=== PATIENT | male | born 1990 | race Caucasian/White ===

== ENCOUNTER 2018-03-13 14:16 | Inpatient (IN) | payer OTHER ==
[~2018-03-13] VITALS: Ht 177.8 cm; Wt 63.5 kg
--- NOTE | 2018-03-13 17:45 | NUR ---
Pre-assessment Note Pre-Assessment done at intake office, client is A/O x4, he presents with flat affect, anxious mood, restless, flushed facial skin, and tremors felt. Client is wearing clean clothes, he appears malnourished, temporal waste, and brittle nails. Client avoids eye contact, he answers questions in a low, monotone voice, he has difficulty concentrating, questions need to be repeated, client is shifting in chair constantly. T 98.7, RR 18, HR 104, BP 138/79, spO2 @ 98% on RA, No Pain. He is fully ambulatory. He reports NKDA. Client verbalized understanding of disposal of unidentifiable pills and controlled medications, unit protocol regarding vital signs Q4H, blood drawn, and urine drug test.
[2018-03-13] MEDS ORDERED: SERT50TA PO (18:01)
[2018-03-13] MEDS ORDERED: LEVE500T9 PO (18:01)
[2018-03-13] MEDS ORDERED: ONDA4TAB11 PO (18:01)
[2018-03-13] MEDS ORDERED: POTA-10 PO (18:01)
[2018-03-13] MEDS ORDERED: TRAZ-182 PO (18:01)
[2018-03-13] MEDS ORDERED: MAGN400T26 PO (18:01)
--- NOTE | 2018-03-13 18:08 | NUR ---
Admission Note Client stated, "I am scare to stop drinking on my own." Client is a 27 year old male, arrived on the unit at 1808. Client has a steady gait. Admitted for medically withdrawal of Alcohol. Client appears suspicious and worried. Client appears to be withdrawing from alcohol. CIWA 6 for anxiety and agitation. Client is oriented to unit, educated about protocols and how to work TV and call light in his room. Weigh: 150 pounds. Height: 5'10" Client reports withdrawal symptoms as follow: "Sweats, headaches, confusion, nausea, vomiting, restless, irritability, tremors, and restless legs." Client substance use: Alcohol (Fireball Whiskey), first time use at age 18 in social gatherings with friends, slowly he started increasing until he became fully dependent of use, now he consumes 1000mL of whiskey daily for the past 18 months, last used 03/13/18 @ 1300, 30mL of Rum mixed with coca-cola. Bilateral lung clear on auscultation, abdomen soft, non-tender, no edema noted. 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 He is taking Keppra 500mg PO BID. Client reports past medical history: alcohol intoxication (03/07/18). Past psychiatric Hx: Anxiety (06/19), depression (06/19) client is taking Zoloft does not remember dose. Client denies any history of involuntary psychiatric hospitalization, no history of suicidal/homicidal ideation. Client has NKDA, regular diet, full code ordered. Client declines PNA /FLU vaccine, stating, "I don't think I will get that." He gives verbal consent for HIV. He reports no history of treatment, his longest period of sobriety is for a month in 2016 does not recall the exact date. Client stated, "I am going into a residential treatment and try to stay sober, otherwise, I don't think I will make it." Dr. Engel notified of client's admission. Client has not provided urine for urine drug screen. All safety measures instituted. [place] precaution. Call light within reach. Will continue to monitor.
[2018-03-13] MEDS ORDERED: RANI150T43 PO (18:50)
[2018-03-13] MEDS ORDERED: IBUP-1627 PO (18:52)
--- NOTE | 2018-03-13 19:30 | NUR ---
END OF SHIFT Endorse client to incoming nurse, client is in room, a/o x 4, client continues to presents with depressed mood, poor appetite, anxiety, and agitation. Client denies SI/HI. Last CIWA 6 @ 1800. Consumed 50% of dinner. Adequate PO fluid intake 1500mL, stool x 2. Call light within reach.
--- NOTE | 2018-03-13 19:35 | NUR ---
Start of Shift Patient Received. Per endorsement, Patient is a 27 year old male admitted for signs and symptoms of ETOH Withdrawal. Patient is set to start of modified Valium taper tomorrow 03/14/17. PRN medications available for increased signs and symptoms of withdrawal. Patient continues on Keppra 500mg BID for history of seizures. MRSA swap collected due to patient receiving medical care due to increased withdrawals. No PRN medications administered due to patient unable to provide admission urine drug screen. Last noted CIWA 6. Upon rounds patient is noted in bed, awake, alert and verbally responsive. Patient is noted to be disheveled, unkempt, odorous, avoids eye contact with flat, depressed affect. Patient is able to verbalize increased anxiety, agitation, tremulous, increased chills, sweats, and episode of loose bowels. Patient is also noted to request to join peers for smoke break. Explained to patient that medications would be administered once urine drugs screen was obtained. Patient was able to provide urine. Will administer medications when patient arrives back on unit. Patient verbalized understanding. All needs attended to promptly. Will continue plan of care as ordered.
[2018-03-13 20:02] LABS: *AMPHETAMINE, URINE NEGATIVE (NEGATIVE); *BARBITURATE, URINE NEGATIVE (NEGATIVE); *CANNABINOID, URINE NEGATIVE (NEGATIVE); *COCCAINE, URINE NEGATIVE (NEGATIVE); *OPIATE, URINE NEGATIVE (NEGATIVE); *PHENCYCLIDINE SCREEN,URINE NEGATIVE (NEGATIVE)
[2018-03-13] MEDS ORDERED: ACETAMINOPHEN 325 MG TABLET PO PRN (20:15)
[2018-03-13] MEDS ORDERED: LORAZEPAM 2 MG/1 ML VIAL IM PRN (20:15)
[2018-03-13] MEDS ORDERED: MIRALAX 17 GM POWD.PACK PO PRN (20:15)
[2018-03-13] MEDS ORDERED: MAG HYDROX/AL HYDROX/SIMETH 30 ML LIQUID UDC PO PRN (20:15)
[2018-03-13] MEDS ORDERED: THIAMINE HCL 200 MG/2 ML VIAL IM ONE (20:15)
[2018-03-13] MEDS ORDERED: MAGNESIUM HYDROXIDE 30 ML LIQUID UDC PO PRN (20:15)
[2018-03-13] MEDS ORDERED: ONDANSETRON 4 MG/2 ML VIAL IM PRN (20:15)
[2018-03-13] MEDS ORDERED: IBUPROFEN 600 MG TABLET PO PRN (20:15)
[2018-03-13] MEDS ORDERED: LOPERAMIDE HCL 2 MG CAPSULE PO PRN ×2 (20:15)
[2018-03-13] MEDS ORDERED: diphenhydrAMINE 50 MG CAPSULE PO PRN (20:15)
[2018-03-13] MEDS ORDERED: DIAZEPAM 5 MG TABLET PO PRN (20:15)
[2018-03-13] MEDS ORDERED: DIAZEPAM 10 MG TABLET PO PRN ×2 (20:15)
[2018-03-13] MEDS ORDERED: ONDANSETRON ODT 4 MG TAB.RAPDIS SL PRN (20:15)
[2018-03-13 20:25] VITALS: BP 130/75
[2018-03-13] MEDS: LEVETIRACETAM 500 MG TABLET PO SCH (21:06)
[2018-03-13] MEDS: FOLIC ACID 1 MG TABLET PO SCH (21:08)
[2018-03-13] MEDS: MULTIVITAMINS,THERAPEUTIC TABLET PO SCH (21:08)
[2018-03-13] MEDS: THIAMINE HCL 100 MG TABLET PO SCH (21:08)
--- NOTE | 2018-03-13 21:10 | NUR ---
CIWA Assessment/PRN Medication Administration Patient continues to be monitored for increased signs and symptoms of ETOH Withdrawal. Patient is noted to be disheveled, unkempt, odorous, and avoids eye contact with flat, depressed affect. Patient verbalizes increased anxiety, agitation, restlessness, tremulous, increased chills, sweats, and episode of loose bowels. Patient also requesting for sleep medication and states "I usually take Trazodone for sleep" Explained to patient that MD would be made aware. Patient verbalized understanding. PRN Valium 20mg administered for CIWA of 17 as well as PRN Imodium 4mg for episodes of loose bowel. All needs attended to promptly. Will continue to monitor.
[2018-03-13 21:13] LABS: EOSINOPHILS # (AUTO) 0.1 K/uL (0.0-0.7); EOSINOPHILS % (AUTO) 1.3 % (0.0-7.0); HEMATOCRIT 37.1 % (36.7-47.1); HEMOGLOBIN 13.4 g/dL (12.5-16.3); LYMPHOCYTES # (AUTO) 1.2 K/uL (20.0-40.0); LYMPHOCYTES % (AUTO) 31.7 % (20.5-51.5); MEAN CORPUSCULAR HEMOGLOBIN 33.7 uug (23.8-33.4); MEAN CORPUSCULAR HGB CONC 36 g/dL (32.5-36.3); MEAN CORPUSCULAR VOLUME 93.6 fL (73.0-96.2); MONOCYTES # (AUTO) 0.6 K/uL (2.0-10.0); MONOCYTES % (AUTO) 15.6 % (0.0-11.0); NEUTROPHILS # (AUTO) 1.9 K/uL (1.8-8.9); NEUTROPHILS % (AUTO) 50.4 % (38.5-71.5); PLATELET COUNT (AUTO) 227 K/uL (152-348); RED BLOOD CELL COUNT(AUTO) 3.97 MIL/uL (4.06-5.63); WHITE BLOOD COUNT (AUTO) 3.8 K/uL (3.6-10.2)
--- NOTE | 2018-03-13 22:15 | NUR ---
PRN Medication Administration patient is noted in bed with eyes closed but is noted to be easily awakened upon entering room. Breathing even and non labored. Patient is able to verbalize that medications have been effective in minimizing signs and symptoms of withdrawals. PRN Valium 20mg and PRN Imodium noted to be effective. All needs attended to promptly. Will continue to monitor. Addendum: 03/14/18 at 0225 by MATTHEW BRYANT LVN PRN Medication Reassessment
[2018-03-13 22:20] LABS: BILIRUBIN,TOTAL 0.5 mg/dL (0.2-1.0); CREATININE 0.9 mg/dL (0.6-1.3); MAGNESIUM 1.4 mg/dL (1.8-2.4); POTASSIUM 3.1 mmol/L (3.5-5.1); TOTAL PROTEIN, SERUM 7.3 g/dL (6.4-8.2)
[2018-03-13 22:43] LABS: THYROID STIMULATING HORMONE 0.881 mIU/mL (0.358-3.740)
[2018-03-13] MEDS ORDERED: MAGNESIUM OXIDE 400 MG TABLET PO ONE (22:45)
[2018-03-13] MEDS ORDERED: POTASSIUM CHLORIDE 20 MEQ TAB.PRT.SR PO ONE (22:45)
[2018-03-13] MEDS ORDERED: TRAZODONE 50 MG TABLET PO ONE (22:45)
--- NOTE | 2018-03-13 22:50 | NUR ---
MD Communication/Labs Patients labs drawn and noted with potassium 3.1 and Magnesium of 1.4. Orders of one time dose of KDUR 40meq and Mag ox of 800mg. Patient noted to refuse Trazodone 50mg and states "I think I will be ok without the Trazodone." KDUR and Mag Ox administered as per order. Will continue to monitor.
[2018-03-14 00:28] VITALS: BP 121/60
--- NOTE | 2018-03-14 00:30 | NUR ---
CIWA Assessment Patient is noted in bed with eyes closed. Breathing even and non labored. Patient is easily awakened to verbal stimuli. Patient compliant with vitals. Vitals rendered. He is noted to easily fall back to sleep with no complications noted. CIWA not able to be completed as per order. Will continue to monitor.
[2018-03-14 00:39] LABS: BASOPHILS % (MANUAL) 1 % (0-2); EOSINOPHILS % (MANUAL) 1 % (0-8); LYMPHOCYTES % (MANUAL) 33 % (20-40); MONOCYTES % (MANUAL) 16 % (2-10); NEUTROPHILS % (MANUAL) 49 % (42-75)
[2018-03-14 04:18] VITALS: BP 108/65
--- NOTE | 2018-03-14 04:25 | NUR ---
CIWA Assessment Patient is noted in bed with eyes closed. Breathing even and non labored. Patient is easily awakened to verbal stimuli. He is compliant with vitals. Patient is noted to easily fall back to sleep with no complications noted. CIWA not able to be completed as per order. Will continue to monitor.
--- NOTE | 2018-03-14 07:22 | NUR ---
End of Shift Patient is noted in bed with eyes closed. Breathing even and non labored. No signs of restlessness or facial grimacing noted. Patient is set to start a modified Valium taper today 03/14/17. Patient received PRN Valium 20mg and PRN Imodium 4mg with medications noted to be effective. Patient was supplemented with KDUR 40 meq for potassium of 3.1 as well as Mag Ox 800mg for Mg of 1.4. Patient continues on Keppra 500mg BID for history of seizures. MRSA swap pending. Last noted CIWA 8. Patient noted to sleep a total of 8 hours. Patient is noted to be disheveled, unkempt, odorous, avoids eye contact with flat, depressed affect. Patient is able to verbalize increased anxiety, agitation, tremulous, increased chills, sweats, and episode of loose bowels. All needs attended to promptly. Will endorse to continue plan of care as ordered.
--- NOTE | 2018-03-14 07:40 | NUR ---
START OF SHIFT Endorse rcvd from ongoing nurse, client is in room, lying in bed on his R side, he sound asleep, easy to awaken, RR 16, even, non-labored. Client is covered with several blankets, he is shivering, sweats noted on upper lip, and clammy upper extremities. Client is to start 5 day Valium taper, last CIWA 8 @ 2200. PRN Valium 20mg PO for CIWA 17, Clonidine 0.1mg PO for agitation. Client has been sleeping for the past 8 hrs. [place]/Seizure precautions. Side rails x 2 up/padded. Call light within reach. Will continue to monitor.
[2018-03-14 08:26] VITALS: BP 115/69
[2018-03-14] MEDS ORDERED: TUBERCULIN,PURIF.PROT.DERIV. 5 TU/0.1 ML TEST ID ONE (09:00)
[2018-03-14] MEDS: MULTIVITAMINS,THERAPEUTIC TABLET PO SCH (09:31)
[2018-03-14] MEDS: DIAZEPAM 10 MG TABLET PO SCH ×3 (09:31→21:12)
[2018-03-14] MEDS: LEVETIRACETAM 500 MG TABLET PO SCH ×2 (09:31→21:12)
[2018-03-14] MEDS: THIAMINE HCL 100 MG TABLET PO SCH (09:31)
[2018-03-14] MEDS: FOLIC ACID 1 MG TABLET PO SCH (09:31)
--- NOTE | 2018-03-14 09:31 | NUR ---
PPD Test administered to L forearm.
--- NOTE | 2018-03-14 09:32 | NUR ---
CIWA 20 Client appears disheveled, dark native under his eyes, dry lips, anxious mood, flat affect, flushed facial skin, tremors, difficulty thinking clearly, and difficulty concentrating. Client reports anxiety, agitation, nausea, abdominal cramps, poor appetite, anhedonia, and sweats. Schedule Valium 10mg PO administered. Encourage client to increase PO fluid intake to facilitated detox. Call light within reach. Will continue to monitor.
[2018-03-14 12:00] VITALS: BP 123/76
--- NOTE | 2018-03-14 12:00 | NUR ---
CIWA 14 Client reports abdominal cramps, agitation, anhedonia, anxiety, poor appetite, chills/cold, clammy skin, depression, difficulty concentrating, difficulty thinking clearly, emotional volatility, and tremors. Non-pharmacologic measures rendered. Call light within reach. Will continue to monitor.
[2018-03-14 16:00] VITALS: BP 116/71
--- NOTE | 2018-03-14 16:00 | NUR ---
CIWA 15 Client reports anxiety, irritability, flushed facial skin, chills/cold, sweats, abdominal cramps, poor appetite, difficulty thinking clearly, emotional volatility, restless legs, and fatigue. Non-pharmacologic measures rendered. Will continue to monitor. Call light within reach.
[2018-03-14 17:30] LABS: CREATININE 0.9 mg/dL (0.6-1.3); POTASSIUM 3.2 mmol/L (3.5-5.1)
[2018-03-14 17:43] LABS: MAGNESIUM 1.2 mg/dL (1.8-2.4)
[2018-03-14] MEDS ORDERED: MAGNESIUM OXIDE 400 MG TABLET PO ONE ×2 (18:00→21:00)
--- NOTE | 2018-03-14 19:25 | NUR ---
END OF SHIFT Endorse client to incoming nurse, client is in room, a/o x 4, client continues to presents with anxiety, irritability, flushed facial skin, headache, chills/cold, sweats, abdominal cramps, poor appetite, difficulty thinking clearly, emotional volatility, restless legs, and fatigue. Critical value of Mag 1.2 Mag-Ox 800mg PO administered x 1, client has another order for 2100. Potassium is 3.2 NNO at this time.Client denies N/V/D, no SI/HI. Client is on first of 5 day Valium taper. Last CIWA 15 @ 1600. Client is not compliant with group therapy d/t above withdrawal. Consumes 50% of meals. Adequate PO fluid intake 1900mL, void x 3, stool x 1. Call light within reach.
--- NOTE | 2018-03-14 19:30 | NUR ---
Start of Shift Patient Received. Per endorsement, patient continues on a modified Valium taper. Patient did not received any PRN medications. PPD was administered to LFA. Patients lab values noted with Mg 1.2 and Potassium 3.2. Patient received a one time dose of Mag Ox 800mg with an additional dose of Mag Ox 800mg to be administered at 2100. Patient has been noted to be isolative to room and non compliant with group and social activities due to increased signs and symptoms of withdrawal. Last noted CIWA 15. Upon rounds patient is noted in bed, awake, alert and verbally responsive. Breathing even and non labored. Patient is able to verbalize increased anxiety, agitation, intermittent chills, sweats, restlessness, and tremulous to touch. Reviewed 2100 medications with patient and he verbalized understanding. Patient is noted to want to join peers for smoking break. All needs attended to promptly Will continue plan of care as ordered.
[2018-03-14 20:22] VITALS: BP 118/79
[2018-03-14] MEDS ORDERED: POTASSIUM CHLORIDE 20 MEQ TAB.PRT.SR PO ONE (22:30)
[2018-03-14] MEDS: TRAZODONE 100 MG TABLET PO PRN (22:47)
--- NOTE | 2018-03-14 22:50 | NUR ---
PRN Medication Administration Patient noted verbalizing inability of falling asleep. He is also noted with Potassium of 3.2 with one time dose of KDUR 40meq. PRN Trazodone and KDUR administered as per order. Will continue to monitor.
--- NOTE | 2018-03-14 23:50 | NUR ---
PRN Medication Reassessment Patient is noted in bed with eyes closed. Breathing even and non labored. No signs of restlessness or facial grimacing noted. Patient received PRN Trazodone with mediation noted to be effective. Will continue to monitor.
[2018-03-15 00:24] VITALS: BP 111/71
--- NOTE | 2018-03-15 00:25 | NUR ---
CIWA Assessment Patient is noted in bed with eyes closed. Breathing even and non labored. Patient is noted to easily awaken upon entering room. He is compliant with vitals as ordered. CIWA Assessment not able to be completed as per order due to patient noted to easily fall back to sleep with no complications noted. No restlessness or facial grimacing noted. Will continue to monitor.
--- NOTE | 2018-03-15 04:15 | NUR ---
CIWA Assessment and Vitals Patient is noted in bed with eyes closed. Breathing even and non labored. No signs of restlessness or facial grimacing. Patient noted to refuse vitals. CIWA not able to be completed as per order. Will continue to monitor.
--- NOTE | 2018-03-15 07:04 | NUR ---
End of Shift Patient is noted in bed with eyes closed. Breathing even and non labored. No signs of restlessness or facial grimacing noted. Patient continues on a modified Valium taper and also continues on Keppra 500mg BID for history of seizures. Patient received a onetime dose of KDUR 40meq as well as one time dose of Mag Ox 800mg. PRN Trazodone administered for inability of falling asleep with medication noted to be effective. Last noted CIWA 15. Patient has been noted to be isolative to room and non compliant with group or social activities. Patient continues to be monitored for increased anxiety, restlessness, agitation, chills, sweats, and tremors. Patient noted to sleep a total of 6 hours. All needs attended to promptly Will continue plan of care as ordered.
--- NOTE | 2018-03-15 07:30 | NUR ---
Start of Shift Note: Report received from security shift supervisor nurse. Last CIWA 15 and pt slept for 6 hours. Upon start of shift, pt was in bed with eyes closed. Pt stated he has no complaints at the time but pt appears mildly tremulous, and speaks with a nervous tone. Pt had no other complaints. Plan of care explained to pt. Pt verbalized understanding. Pt continues on Valium taper to manage withdrawal symptoms. Bed in lowest position. Side rails up x2. Call light functioning and within reach. All needs attended and met. Will continue to monitor.
[2018-03-15 08:00] VITALS: BP 103/51
[2018-03-15 08:04] LABS: BILIRUBIN,TOTAL 0.6 mg/dL (0.2-1.0); CREATININE 0.8 mg/dL (0.6-1.3); MAGNESIUM 1.8 mg/dL (1.8-2.4); POTASSIUM 3.6 mmol/L (3.5-5.1); TOTAL PROTEIN, SERUM 6.5 g/dL (6.4-8.2)
[2018-03-15 08:06] LABS: HEPATITIS B SURFACE AG Negative (Negative)
[2018-03-15] MEDS: THIAMINE HCL 100 MG TABLET PO SCH (08:51)
[2018-03-15] MEDS: DIAZEPAM 5 MG TABLET PO SCH ×4 (08:51→21:00)
[2018-03-15] MEDS: FOLIC ACID 1 MG TABLET PO SCH (08:51)
[2018-03-15] MEDS: MULTIVITAMINS,THERAPEUTIC TABLET PO SCH (08:51)
[2018-03-15] MEDS: LEVETIRACETAM 500 MG TABLET PO SCH ×2 (08:51→21:00)
--- NOTE | 2018-03-15 09:43 | NUR ---
Therapist prompted client to attend group therapy.
[2018-03-15 12:00] VITALS: BP 123/83
[2018-03-15 16:00] VITALS: BP 112/74
--- NOTE | 2018-03-15 19:11 | NUR ---
End of Shift Note: Pt currently in group activity. Pt is here for ETOH withdrawal. Last CIWA 9. Pt currently on Valium taper to manage withdrawal symptoms. No PRNs given during shift. No other complaints at this time. All needs attended and met. Will endorse to commercial appraiser nurse.
--- NOTE | 2018-03-15 19:15 | NUR ---
START OF SHIFT Received 27 year old male patient admitted to [facility] on 03/13/18 for medically supervised ETOH withdrawal. Pt currently on day 2 of a 5 day Valium taper, which he is tolerating well. Last CIWA 9 @1600. Pt did not receive any PRN medications on day shift. Pt isolated in disheveled room watching TV. Pt is anxious, agitated, withdrawn, guarded, clammy, and visible tremors. Bed is low, padded side rails up x 2, and call viveros in reach. Will continue to monitor.
[2018-03-15 20:00] VITALS: BP 133/72
--- NOTE | 2018-03-15 20:00 | NUR ---
CIWA 11 Pt is anxious, agitated, withdrawn, guarded, clammy, and visible tremors.
[2018-03-15] MEDS: HYDROXYZINE PAMOATE 25 MG CAPSULE PO PRN (23:29)
[2018-03-15] MEDS: CLONIDINE HCL 0.1 MG TABLET PO PRN (23:29)
--- NOTE | 2018-03-15 23:29 | NUR ---
PRN Clonidine/Vistaril CIWA 16 Pt awake has increased anxiety, agitation, tremors, and sweating. CIWA 16 PRN Clonidine and Vistaril given per order. Will monitor effect.
[2018-03-15] MEDS: TRAZODONE 100 MG TABLET PO PRN (23:47)
--- NOTE | 2018-03-15 23:47 | NUR ---
PRN Trazodone Pt went to smoke and now requests Trazodone for sleep. Given per order. Will monitor effect.
[2018-03-16] VITALS: BP 124/80
--- NOTE | 2018-03-16 00:29 | NUR ---
Reassess PRN Clonidine/Vistaril/Trazodone Medications effective. Pt resting with eyes closed. Respirations are even and unlabored. Will continue to monitor.
--- NOTE | 2018-03-16 04:00 | NUR ---
CIWA Deferred and Vitals refused Pt resting with eyes closed. Respirations are even and unlabored. Continue to monitor.
--- NOTE | 2018-03-16 06:43 | NUR ---
END OF SHIFT Endorsing 27 year old male patient admitted to [facility] on 03/13/18 for medically supervised ETOH withdrawal. Pt currently on day 3 of a 5 day Valium taper, which he is tolerating well. Last CIWA 16 @9331. Pt received PRN Clonidine, Vistaril, and Trazodone on mini shifter. Pt is resting with eyes closed. Respirations are even and unlabored. Bed is low, padded side rails up x 2, and call viveros in reach. PO intake 1175 ml, Voided x 3 BM x 0, and slept 7 hours.
--- NOTE | 2018-03-16 07:30 | NUR ---
Start of Shift Patient is a 27yr old male who was admitted for a medically supervised withdrawal from ETOH. Pt has been placed on a 5 day Valium taper and this is day 3. Last CIWA 16 at 2400. Pt slept 7 hours last night. His withdrawal symptoms include lethargy, chills, sweats, decreased appetite, restless legs , neck and low back pain, and bilateral hand tremors. He has a flat affect and depressed mood. Pt is disheveled, malodorous, and unshaven. Room cluttered with empty bottles and food wrappers. Encouraged Pt to attend group therapies to identify positive coping skill to maintain sobriety. Continue to follow MD plan of care and offer support and encouragement as needed. All safety measures in place, bed locked, low positions, side rails up X2. Will continue to monitor for withdrawal symptoms.
[2018-03-16 08:00] VITALS: BP 96/52
[2018-03-16] MEDS: THIAMINE HCL 100 MG TABLET PO SCH (09:00)
[2018-03-16] MEDS: DIAZEPAM 5 MG TABLET PO SCH ×3 (09:00→22:33)
[2018-03-16] MEDS: LEVETIRACETAM 500 MG TABLET PO SCH ×2 (09:00→22:32)
[2018-03-16] MEDS: FOLIC ACID 1 MG TABLET PO SCH (09:00)
[2018-03-16] MEDS: MULTIVITAMINS,THERAPEUTIC TABLET PO SCH (09:00)
--- NOTE | 2018-03-16 09:03 | NUR ---
PRN Ibuprofen 600 mg PO for back pain #3/10
--- NOTE | 2018-03-16 10:07 | NUR ---
Reassess Ibuprofen- Pt reports back pain now #03/13. Medication effective.
[2018-03-16 12:00] VITALS: BP 118/79
[2018-03-16] MEDS: CLONIDINE HCL 0.1 MG TABLET PO PRN (12:23)
--- NOTE | 2018-03-16 12:24 | NUR ---
PRN Clonidine 0.1 mg PO for anxiety. Pt pacing unit and the patio had stressful group meeting.
--- NOTE | 2018-03-16 12:39 | NUR ---
Therapist prompted client to attend all daily group therapy sessions.
--- NOTE | 2018-03-16 13:25 | NUR ---
Reassess Clonidine- Pt reports anxiety slightly improved. Continue to follow MD plan of care and offer support and encouragement as needed.
[2018-03-16 16:45] VITALS: BP 116/69
[2018-03-16] MEDS: HYDROXYZINE PAMOATE 25 MG CAPSULE PO PRN (16:45)
--- NOTE | 2018-03-16 16:45 | NUR ---
PRN Vistaril 50mg PO administered for anxiety, mb increased P 96, restlessness, and difficulty concentrating. Call light within reach. Primary nurse to reassess medication.
--- NOTE | 2018-03-16 17:45 | NUR ---
Reassess Vistaril- Pt reports anxiety improved. Pt in his room watching Tv eating dinner. He has been seen pacing the unit and visits the patio.
--- NOTE | 2018-03-16 18:33 | NUR ---
End of Shift Patient is a 27yr old male who was admitted for a medically supervised withdrawal from ETOH. Pt has been placed on a 5 day Valium taper and this is day 3. Last CIWA 15 at 1600. PRN given today; Ibuprofen, Vistaril and Clonidine. His withdrawal symptoms include lethargy, chills,/sweats, decreased appetite, restless legs , neck and low back pain, and bilateral hand tremors. He has a flat affect and depressed mood. Pt is disheveled, malodorous, and unshaven. Room cluttered with empty bottles and food wrappers. Encouraged Pt to attend group therapies to identify positive coping skill to maintain sobriety. Continue to follow MD plan of care and offer support and encouragement as needed. PO fluids 2000ml, void x3, BMx1. All safety measures in place, bed locked, low positions, side rails up X2. Will continue to monitor for withdrawal symptoms. Endorsed to PM shift.
--- NOTE | 2018-03-16 19:15 | NUR ---
START OF SHIFT Received 27 year old male patient admitted to [facility] on 03/13/18 for medically supervised ETOH withdrawal. Pt currently on day 3 of a 5 day Valium taper, which he is tolerating well. Last CIWA 15 @1600. Pt received PRN Clonidine, Vistaril, and Motrin on day shift. Pt awake , alert, and participating in group. Bed is low, padded side rails up x 2, and call viveros in reach. Will continue to monitor.
[2018-03-16 20:00] VITALS: BP 124/82
--- NOTE | 2018-03-16 20:00 | NUR ---
CIWA 11 Pt anxious, agitated, flushed, tremors, and fidgety.
[2018-03-16] MEDS: TRAZODONE 100 MG TABLET PO PRN (22:33)
--- NOTE | 2018-03-16 22:33 | NUR ---
PRN Trazodone/Scheduled medications Pt refused scheduled medications until ready for be. Requested Trazodone for sleep. All medications given. Will monitor effect.
--- NOTE | 2018-03-16 23:30 | NUR ---
Reassess PRN Trazodone Medication effective. Pt resting in bed with eyes closed. Respirations are even and unlabored. Bed is low, padded side rails up x 2, and call viveros in reach. Continue to monitor.
--- NOTE | 2018-03-17 | NUR ---
CIWA Deferred/ Vitals refused Pt resting in bed with eyes closed. Respirations are even and unlabored. Bed is low, side rails up x 2, and call viveros in reach. Continue to monitor.
--- NOTE | 2018-03-17 07:00 | NUR ---
END OF SHIFT Endorsing 27 year old male patient admitted to [facility] on 03/13/18 for medically supervised ETOH withdrawal. Pt currently on day 4 of a 5 day Valium taper, which he is tolerating well. Last CIWA 11 . Pt received PRN Trazodone 50 mg on corporate receptionist. Pt is resting with eyes closed. Respirations are even and unlabored. Bed is low, padded side rails up x 2, and call viveros in reach. PO intake 2500 ml, voided x 3, BM x 0, and slept 6 hours.
[2018-03-17 07:17] LABS: BILIRUBIN,DIRECT 0.1 mg/dL (0.0-0.2); BILIRUBIN,TOTAL 0.3 mg/dL (0.2-1.0); TOTAL PROTEIN, SERUM 6.5 g/dL (6.4-8.2)
--- NOTE | 2018-03-17 07:39 | NUR ---
START OF SHIFT NOTE Received report from night nurse, 27 year old male admitted for ETOH withdrawal. Patient continues with 5 days Valium tolerating well. Per endorsement patient received PRN Trazodone effective per night nurse, slept for 6 hours, last . Received patient asleep responsive to verbal and tactile stimuli. Breathing normal no SOB noted. Skin intact warm and dry to touch. No s/s of distress noted. All safety measures in place. Will cont with plan of care.
[2018-03-17 08:00] VITALS: BP 122/79
[2018-03-17] MEDS: FOLIC ACID 1 MG TABLET PO SCH (08:32)
[2018-03-17] MEDS: LEVETIRACETAM 500 MG TABLET PO SCH ×2 (08:32→20:26)
[2018-03-17] MEDS: MULTIVITAMINS,THERAPEUTIC TABLET PO SCH (08:32)
[2018-03-17] MEDS: THIAMINE HCL 100 MG TABLET PO SCH (08:32)
[2018-03-17] MEDS: DIAZEPAM 5 MG TABLET PO SCH ×2 (08:32→20:26)
[2018-03-17 12:00] VITALS: BP 120/76
[2018-03-17 16:00] VITALS: BP 115/75
--- NOTE | 2018-03-17 19:29 | NUR ---
END OF SHIFT NOTE Gave report to night nurse, 27 year old male admitted for ETOH withdrawal and continues with 5 days Valium taper tolerating well. patient presented with anxiety, agitation, sweats, fatigue, odors breath, unkempt room, linens on the floor. During shift patient received his scheduled medications no PRN'S were administered during shift. Patient attended groups and activities, interacting with peers. Patient is compliant with medications and plan of care. Vital signs WNL. Last CIWA score was 12 at 1600. Patient denies any SI/HI. Encourage PO fluids as tolerated. All needs are attended. Endorse patient to night nurse in stable condition.
--- NOTE | 2018-03-17 19:30 | NUR ---
Start of shift note Received report from day shift nurse. Patient is a 27 year old male admitted for ETOH withdrawal. Patient is on 4th day of his 5 day Valium taper. Patient did not require PRN medication. Last CIWA 12. Patient alert and oriented x 4. Patient is unshaven, disheveled, room is odorous, dirty and clothes are everywhere in the room . Patient reports anxiety, restlessness, intermittent perspiration, restless legs and insomnia. Safety measures in place. Will continue to monitor.
[2018-03-17 20:00] VITALS: BP 132/75
[2018-03-17] MEDS: TRAZODONE 100 MG TABLET PO PRN (22:42)
--- NOTE | 2018-03-17 22:42 | NUR ---
PRN Trazadone administration Patient requests for sleep aid. Will continue to monitor
--- NOTE | 2018-03-18 | NUR ---
CIWA deferred/VS refused Patient lying in bed with eyes closed. Respiration even and unlabored. Will continue to monitor
--- NOTE | 2018-03-18 04:00 | NUR ---
CIWA deferred/VS refused Patient lying in bed with eyes closed. Respiration even and unlabored. Will continue to monitor
--- NOTE | 2018-03-18 07:24 | NUR ---
End of shift note Patient alert and oriented x 4. Patient reported anxiety, restlessness, intermittent perspiration, restless legs and insomnia. Scheduled medication and taper, tolerated well and no adverse reaction . Patient had difficulty falling asleep. PRN Trazadone given. Patient compliant with medication and treatment plan. Safety measures in place. Will continue to monitor. Slept 6 hours. Fluid intake 925 ml. Voided x 1. No BM.
--- NOTE | 2018-03-18 07:55 | NUR ---
START OF SHIFT NOTE Received report from night nurse, 27 year old male admitted for ETOH withdrawal. Patient continues with 5 days Valium tolerating well. Per endorsement patient received PRN Trazodone effective per night nurse, slept for 6 hours, last . Received patient alert awake oriented x4, anxious, agitated, fatigue, restlessness, sweats, bilateral hand tremors, body aches. Patient is due for schedule medications. Educated patient on current plan of the day and medications regimen. All safety measures in place. Will cont with plan of care.
[2018-03-18 08:00] VITALS: BP 102/64
[2018-03-18] MEDS: LEVETIRACETAM 500 MG TABLET PO SCH ×2 (08:37→22:53)
[2018-03-18] MEDS: THIAMINE HCL 100 MG TABLET PO SCH (08:37)
[2018-03-18] MEDS: MULTIVITAMINS,THERAPEUTIC TABLET PO SCH (08:37)
[2018-03-18] MEDS: FOLIC ACID 1 MG TABLET PO SCH (08:38)
[2018-03-18] MEDS ORDERED: DIAZEPAM 5 MG TABLET PO SCH (09:00)
[2018-03-18 12:00] VITALS: BP 114/70
[2018-03-18] MEDS ORDERED: HYDR-3895 PO (14:36)
[2018-03-18] MEDS ORDERED: TRAZ-182 PO (14:36)
[2018-03-18] MEDS ORDERED: LEVE500T9 PO (14:36)
[2018-03-18] MEDS ORDERED: CLON0.1T14 PO (14:36)
[2018-03-18 16:00] VITALS: BP 131/75
--- NOTE | 2018-03-18 19:30 | NUR ---
Start of shift note Received report from day shift nurse. Patient is a 27 year old male admitted for ETOH withdrawal. Patient is on last day of his 5 day Valium taper. Patient did not require PRN medication. Last CIWA 8 . Patient alert and oriented x 4. Patient is unshaven, disheveled, room is odorous, dirty and clothes are everywhere in the room . Patient reports anxiety, restlessness, intermittent perspiration, and insomnia. Safety measures in place. Will continue to monitor. Addendum: 03/18/18 at 2222 by JUSTIN TORRES LVN Patient is medically cleared to be discharge tomorrow.
--- NOTE | 2018-03-18 19:38 | NUR ---
END OF SHIFT NOTE Gave report to night nurse, 27 year old male admitted for ETOH withdrawal. Patient completed his 5 days Valium taper tolerated well. During shift patient received his scheduled medications no PRN'S were administered during shift. Patient presented with anxiety, agitation, sweats, fatigue, anhedonia, unkempt room. Patient attended groups and activities, interacting with peers. Patient is compliant with medications and plan of care. Vital signs WNL. Last CIWA score was 8 at 1600. Patient scheduled for discharge in AM. Patient denies any SI/HI. Encourage PO fluids as tolerated. All needs are attended. Endorse patient to night nurse in stable condition.
[2018-03-18 20:00] VITALS: BP 121/86
[2018-03-18] MEDS: TRAZODONE 100 MG TABLET PO PRN (22:53)
--- NOTE | 2018-03-18 22:53 | NUR ---
Late administration Patient requested to have his Keppra to be given a this time.
--- NOTE | 2018-03-18 22:53 | NUR ---
PRN Trazadone administration Patient requests for sleep aid. Will monitor for effectiveness
[2018-03-19] VITALS: BP 128/77
--- NOTE | 2018-03-19 01:00 | NUR ---
PRN Trazadone re-assessment Patient lying in bed with eyes closed. Respiration even and unlabored. Will continue to monitor
--- NOTE | 2018-03-19 04:00 | NUR ---
CIWA deferred/VS refused Patient lying in bed with eyes closed. Respiration even and unlabored. Will continue to monitor
--- NOTE | 2018-03-19 07:14 | NUR ---
End of shift note Patient alert and oriented x 4. Patient reported anxiety, restlessness, intermittent perspiration, and insomnia. Patient is medically cleared to be discharge today. Scheduled medication given as ordered. PRN Trazadone given for sleep. Safety measures in place. Will continue to monitor. Slept 7 hours. Fluid intake 1,800 ml. Voided x 4 . BM x 1.
--- NOTE | 2018-03-19 07:30 | NUR ---
start of shift note: received pt from overnight stocker nurse, [facility]. pt's last ciwa 7 and slept for 5 hrs. pt is set to discharge today and will assist pt in discharging and will continue to monitor pt for any changes.
[2018-03-19 08:24] VITALS: BP 101/67
[2018-03-19] MEDS: MULTIVITAMINS,THERAPEUTIC TABLET PO SCH (08:30)
[2018-03-19] MEDS: LEVETIRACETAM 500 MG TABLET PO SCH (08:30)
[2018-03-19] MEDS: THIAMINE HCL 100 MG TABLET PO SCH (08:30)
[2018-03-19 08:31] VITALS: BP 144/67
[2018-03-19] MEDS: CLONIDINE HCL 0.1 MG TABLET PO PRN (08:31)
[2018-03-19] MEDS: HYDROXYZINE PAMOATE 25 MG CAPSULE PO PRN (08:31)
[2018-03-19] MEDS: FOLIC ACID 1 MG TABLET PO SCH (08:33)
--- NOTE | 2018-03-19 09:38 | NUR ---
discharge note: pt left the unit in stable condition, pt was mildly anxious and was given vistaril and clonidine prior to discharging. pt teaching administered and pt verbalized understanding. all personal belongings were returned to pt and pt will be transferred to [facility] via private car
[2018-03-21] MEDS ORDERED: 5 DAY TAPER VALIUM-SERENITY PROTOCOL PO PRN (09:00)
== END 2018-03-19 09:38 | disposition other institution (70) | DRG 895 ==
LOC: SRC 17:08
PROVIDERS: ADMIT Family Medicine Addiction Medicine; ATTEND Family Medicine Addiction Medicine
DX: F10.230 Alcohol dependence with withdrawal, uncomplicated (principal); G40.509 Epileptic seizures related to external causes, not intractable, without status epilepticus; Y90.6 Blood alcohol level of 120-199 mg/100 ml; F41.1 Generalized anxiety disorder; E83.42 Hypomagnesemia; E87.6 Hypokalemia; Z79.899 Other long term (current) drug therapy; E88.09 Other disorders of plasma-protein metabolism, not elsewhere classified; R74.0 Nonspecific elevation of levels of transaminase and lactic acid dehydrogenase [LDH]; F17.200 Nicotine dependence, unspecified, uncomplicated
CPT/HCPCS: 36415; 70030-TC; 80307; 83690; 83735; 84443; 85025; 86580; 86592; 86705; 86803; 87340; 87806; A4663; G0480